=== PATIENT | male | born 1950 | race Caucasian/White ===

== ENCOUNTER 2018-05-31 16:26 | Inpatient (IN) | payer MEDICARE ==
[~2018-05-31] VITALS: Ht 172.7 cm; Wt 64.0 kg
[2018-05-31] MEDS ORDERED: FOLI0.4T PO (16:36)
[2018-05-31] MEDS ORDERED: ONE1TAB2 PO (16:36)
[2018-05-31] MEDS ORDERED: ALBU83IN NEB (16:36)
[2018-05-31] MEDS ORDERED: VITA500C24 PO (16:36)
[2018-05-31] MEDS ORDERED: TREL1AER PO (16:36)
[2018-05-31] MEDS ORDERED: ASPI81TA85 PO (16:36)
[2018-05-31] MEDS ORDERED: ACET-683 PO (16:36)
[2018-05-31] MEDS ORDERED: POTA20EL PO (16:36)
[2018-05-31] MEDS ORDERED: METO1TAB87 PO (16:36)
[2018-05-31] MEDS ORDERED: ATOR40TA75 PO (16:36)
[2018-05-31] MEDS ORDERED: VITA100T12 PO (16:36)
[2018-05-31] MEDS ORDERED: ACETAMINOPHEN TAB 650MG DOSE (2X325MG) PO ONE (17:30)
[2018-05-31 17:39] LABS: BASO # 0.1 10^3/uL (0.0-0.2); BASO % 0.7 % (0.0-1.0); EOS # 0.2 10^3/uL (0.0-0.50); EOS % 1.2 % (0.0-3.0); HEMATOCRIT 40.6 % (42.0-52.0); HEMOGLOBIN 13.1 g/dl (13.5-17.5); LYMPH # 0.4 10^3/uL (1.5-4.5); LYMPH % 3.1 % (24.0-44.0); MEAN CORPUSCULAR HEMOGLOBIN 28.9 pg (27.0-33.0); MEAN CORPUSCULAR HGB CONC 32.3 g/dl (32.0-36.5); MEAN CORPUSCULAR VOLUME 89.6 fl (80.0-96.0); MONO # 1.4 10^3/uL (0.0-0.8); MONO % 10.5 % (0.0-5.0); NEUTROPHILS # 11.5 10^3/uL (1.8-7.7); NEUTROPHILS % 83.8 % (36.0-66.0); PLATELET COUNT, AUTOMATED 365 10^3/uL (150-450); RED BLOOD COUNT 4.53 10^6/uL (4.30-6.10); WHITE BLOOD COUNT 13.7 10^3/uL (4.0-10.0)
[2018-05-31 17:58] LABS: INR 0.97
[2018-05-31 18:00] LABS: INFLUENZA A AMPLIFICATION NEGATIVE (NEGATIVE); INFLUENZA B AMPLIFICATION NEGATIVE (NEGATIVE)
[2018-05-31 18:03] LABS: ALBUMIN 3.5 GM/DL (3.2-5.2); ALT/SGPT 23 U/L (12-78); BILIRUBIN,DIRECT 0.2 MG/DL (0.0-0.2); BILIRUBIN,TOTAL 0.5 MG/DL (0.2-1.0); BLOOD UREA NITROGEN 14 MG/DL (7-18); CALCIUM LEVEL 8.5 MG/DL (8.8-10.2); CARBON DIOXIDE LEVEL 27 MEQ/L (21-32); CHLORIDE LEVEL 106 MEQ/L (98-107); CPK CREATINE PHOSPHOKINASE 79 U/L (39-308); CREATININE FOR GFR 0.78 MG/DL (0.70-1.30); GLOMERULAR FILTRATION RATE > 60.0 (>49); GLUCOSE, FASTING 117 MG/DL (70-100); NT-PRO BNP 1148 PG/ML (<125); POTASSIUM SERUM 4.1 MEQ/L (3.5-5.1); SODIUM LEVEL 141 MEQ/L (136-145); THYROID STIMULATING HORMONE 0.287 uIU/ML (0.358-3.740); TOTAL PROTEIN 6.3 GM/DL (6.4-8.2); TROPONIN I < 0.02 NG/ML (< 0.10)
[2018-05-31] MEDS ORDERED: cefTRIAXone SOD 2 GM in D5W MINI-BAG PLUS 50 ML IV ONE (18:15)
[2018-05-31] MEDS ORDERED: IBUPROFEN 600 MG TAB PO ONE (18:15)
[2018-05-31] MEDS ORDERED: DOXYCYCLINE HYCLATE 100 MG in D5W MINI-BAG PLUS 100 ML IV ONE (18:15)
[2018-05-31] MEDS ORDERED: B-1250TA3 PO (18:36)
[2018-05-31] MEDS ORDERED: ASCO500T PO (18:36)
[2018-05-31] MEDS ORDERED: IPRATROPIUM 0.5MG/ALBUTEROL 2.5MG INH SOL UD 3ML (DUONEB)(J7620) NEB PRN (19:15)
[2018-05-31] MEDS ORDERED: ACETAMINOPHEN 500 MG TAB PO PRN (19:15)
[2018-05-31] MEDS: methylPREDNISolone INJ 40 MG/1 ML VIAL (J2920) IV SCH (19:29)
[2018-05-31] MEDS: IPRATROPIUM 0.5MG/ALBUTEROL 2.5MG INH SOL UD 3ML (DUONEB)(J7620) NEB SCH (20:00)
[2018-05-31 20:35] VITALS: BP 153/66
[2018-05-31] MEDS: METOPROLOL TART 12.5 MG PER 1/2 TAB PO SCH (22:47)
[2018-05-31] MEDS: ENOXAPARIN 40 MG/0.4 ML SYRINGE (J1650) SC SCH (22:48)
[2018-05-31] MEDS: ATORVASTATIN 20 MG TAB PO SCH (22:48)
[2018-06-01] VITALS (7 sets, daily range): BP systolic 107–131; BP diastolic 52–78
[2018-06-01] MEDS: IPRATROPIUM 0.5MG/ALBUTEROL 2.5MG INH SOL UD 3ML (DUONEB)(J7620) NEB SCH ×4 (02:00→19:45)
[2018-06-01 05:09] LABS: HEMATOCRIT 40.2 % (42.0-52.0); HEMOGLOBIN 12.8 g/dl (13.5-17.5); MEAN CORPUSCULAR HEMOGLOBIN 29.1 pg (27.0-33.0); MEAN CORPUSCULAR HGB CONC 31.8 g/dl (32.0-36.5); MEAN CORPUSCULAR VOLUME 91.4 fl (80.0-96.0); PLATELET COUNT, AUTOMATED 340 10^3/uL (150-450); WHITE BLOOD COUNT 13.5 10^3/uL (4.0-10.0)
[2018-06-01 05:24] LABS: BLOOD UREA NITROGEN 17 MG/DL (7-18); CALCIUM LEVEL 8.7 MG/DL (8.8-10.2); CARBON DIOXIDE LEVEL 28 MEQ/L (21-32); CHLORIDE LEVEL 108 MEQ/L (98-107); GLOMERULAR FILTRATION RATE > 60.0 (>49); GLUCOSE, FASTING 182 MG/DL (70-100); POTASSIUM SERUM 4.3 MEQ/L (3.5-5.1); SODIUM LEVEL 140 MEQ/L (136-145)
--- NOTE | 2018-06-01 07:23 | ECGEPIP ---
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
--- NOTE | 2018-06-01 07:32 | REP ---
Chest x-ray: Two views. History: Dyspnea and cough. No comparison chest x-ray. Findings: EKG monitoring electrodes and oxygen delivery tubing overlie the chest. Heart is not enlarged. The lungs are hyperinflated overall. There are increased markings in the right lower lobe consistent with pneumonia. Emphysematous changes are felt to be present in the upper lung zones. Pulmonary vasculature is not increased. No pleural effusion is seen. No bony abnormality is seen. Impression: Hyperinflation consistent with COPD. Infiltrate in the right base consistent with pneumonia. Electronically Signed by Kaiden Link MD 06/01/2018 07:55 A
--- NOTE | 2018-06-01 07:45 | HPE ---
DATE OF ADMISSION: 05/31/2018 ATTENDING PHYSICIAN: Hospitalist Group CHIEF COMPLAINT: Chronic obstructive pulmonary disease (COPD) exacerbation secondary to suspected pneumonia. HISTORY: Keith Estrada is a 67-year-old with severe COPD. He is on chronic supplemental oxygen. He presented with a fever of 101, shortness of breath, cough, productive sputum. He has history of COPD. He had a prolonged hospitalization at [facility] in October and was in the hospital for a month. He was intubated and on extended ventilatory support. The hospitalization was complicated by non ST segment elevation myocardial infarction. His other past history shows hypertension and dysphagia. He had a percutaneous endoscopic gastrostomy (PEG) tube from October until about two weeks ago when it was removed. MEDICATIONS: Tylenol as needed. Aspirin 81 mg daily. Atorvastatin 40 mg daily. Flonase spray. Folic acid 400 mcg daily. Melatonin 5 mg at bedtime. Lopressor 25 mg tablet 1/2 tablet twice daily (12.5 mg twice a day). Multivitamin. Nicotine patch. Potassium chloride 40 mEq daily. Trelegy Ellipta 100-62-25 one inhalation daily. B12 100 mcg daily. Vitamin C daily. ALLERGIES: None known. REVIEW OF SYSTEMS: He has no hemoptysis. No exertional chest pain. No syncope. No rectal bleeding or urinary bleeding. No epistaxis. FAMILY HISTORY: Noncontributory. PHYSICAL EXAMINATION: Blood pressure 181/77. Pulse 138. Respiratory rate 28. 96% oxygen saturation on 2 liters and 94% on 3 liters. 101 degrees. General Appearance: Resting comfortably. Looks like he is chronically dyspneic. He is able to speak full sentences and visit with his family. Says he feels better than he did when he arrived. Pupils equal round and react to light. TMs and oropharynx benign. Neck no masses. Lungs have decreased breath sounds. No wheezes. Emphysematous chest. Heart: Regular rate and rhythm. Tachycardic. Sinus tach on telemetry. Abdomen soft. Nontender. No masses. Extremities: No clubbing, cyanosis or edema. Pulses decreased in the feet, but still palpable. Moves arms and legs with equal strength. LABS: White count 13.7, hemoglobin 13.1 and platelets 365. PT and PTT normal. Sodium 141, potassium 4.1, BUN 14, creatinine 0.7, glucose 117. Flu screen negative. Chest x-ray has not been read yet. There may be some streaky infiltrate on the right side. IMPRESSION: 1. Exacerbation of chronic obstructive pulmonary disease secondary to febrile respiratory infection and suspected pneumonia. Plan - The patient will be admitted to a progressive care unit (PCU) bed. Titrate oxygen to maintain oxygen saturation of 90% or greater. Empiric antibiotic therapy with doxycycline 100 mg IV every 12 hours and Rocephin 2 grams IV daily. Empiric steroid coverage with Solu-Medrol 40 mg IV daily for five days. Nebulized bronchodilator has been ordered. 2. Recent non ST segment elevation myocardial infarction. Telemetry has been ordered. Continue atorvastatin 40 mg daily, low dose Lopressor 12.5 mg twice a day and aspirin 81 mg daily. 3. History of dysphagia. Swallowing is apparently back to baseline. PEG tube has been removed. Aspiration precautions have been ordered. 4. Hypertension. Continue his metoprolol. The hospitalist group will be providing his care in the morning. The patient will be signed out to Dr. Blanche Romo who will do night coverage.
[2018-06-01] MEDS: DOXYCYCLINE HYCLATE 100 MG in D5W MINI-BAG PLUS 100 ML IV SCH ×2 (08:12→20:51)
[2018-06-01] MEDS: METOPROLOL TART 12.5 MG PER 1/2 TAB PO SCH ×2 (08:13→20:51)
[2018-06-01] MEDS: POTASSIUM CHLORIDE 10 MEQ SR TABLET PO SCH (08:13)
[2018-06-01] MEDS: methylPREDNISolone INJ 40 MG/1 ML VIAL (J2920) IV SCH (08:14)
[2018-06-01] MEDS: ASPIRIN 81 MG ENTERIC TAB PO SCH (08:14)
[2018-06-01] MEDS: ASCORBIC ACID 500 MG TAB PO SCH (08:14)
--- NOTE | 2018-06-01 09:45 | IPNPDOC ---
Date Seen The patient was seen on 06/01/18. Progress Note SUBJECTIVE: Patient reports he is breathing better this AM, he tells me normally wears oxygen only at night and with activity, normally not at rest and he is still somewhat short of breath while wearing it at rest at this time. Denies any further fevers since his arrival, no CP, n/v/d OBJECTIVE PHYSICAL EXAMINATION: VITAL SIGNS: Please see below. GENERAL: Pleasant elderly man sitting up in bed wearing nasal cannula she does not appear to be in any acute distress speaking in complete sentences s2 muscle use HEENT: Cranial nerves II through XII grossly intact he is wearing glasses CARDIOVASCULAR: S1-S2 no additional heart sounds appreciated. RESPIRATORY: Lungs expiratory phase and expiratory wheeze bilaterally. ABDOMINAL: Obese bowel sounds present abdomen soft EXTREMITIES: No clubbing cyanosis or edema LABORATORY DATA, IMAGING STUDIES, MICROBIOLOGY: Please see below. DVT prophylaxis ordered?: Lovenox ASSESSMENT AND PLAN: This is a 67-year-old man with shortness of breath. PROBLEMS: 1. Shortness of breath: Likely decompensated COPD secondary to community acquired pneumonia. He does have increased cough and shortness of of breath and increased sputum quantity several days prior to his hospitalization he denies any sick contacts. For the time being he is started on doxycycline and ceftriaxone for follow-up with cultures and narrow spectrum as appropriate I will check respiratory PCR panel as well. He is continued on IV Solu-Medrol nebulizer treatments he doesn't appear to be improving with this regimen as such we will continue with. We'll have to titrate his O2 for his baseline of room air at rest percent 80-92 2. Coronary artery disease: He tells me he had a recent end STEMI is continued on aspirin and statin and beta parish he is not exhibiting any anginal-like symptoms or pain at this time. 3. Depressed TSH: We'll check a complete thyroid panel and reevaluate 4. Left shoulder pain: He recently had shingles and has residual pain which is chronic since that should his symptoms not improve. Consider initiation of Neurontin DISPOSITION: Pending clinical improvement. VS, I&O, 24H, Fishbone Vital Signs/I&O Vital Signs Date Time Temp Pulse Resp B/P (MAP) Pulse Ox O2 Delivery O2 Flow Rate FiO2 06/01/18 08:13 86 118/56 06/01/18 08:00 98.5 20 94 2.0 05/31/18 20:16 Nasal Cannula I&O- Last 24 Hours up to 6 AM 06/01/18 06:00 Intake Total 350 ml Balance 350 ml Laboratory Data 24H LABS Laboratory Tests 2 05/31/18 17:19: Immature Granulocyte % (Auto) 0.7, White Blood Count 13.7H, Red Blood Count 4.53, Hemoglobin 13.1L, Hematocrit 40.6L, Mean Corpuscular Volume 89.6, Mean Corpuscular Hemoglobin 28.9, Mean Corpuscular Hemoglobin Concent 32.3, Red Cell Distribution Width 15.0H, Platelet Count 365, Neutrophils (%) (Auto) 83.8H, Lymphocytes (%) (Auto) 3.1L, Monocytes (%) (Auto) 10.5H, Eosinophils (%) (Auto) 1.2, Basophils (%) (Auto) 0.7, Neutrophils # (Auto) 11.5H, Lymphocytes # (Auto) 0.4L, Monocytes # (Auto) 1.4H, Eosinophils # (Auto) 0.2, Basophils # (Auto) 0.1, Nucleated Red Blood Cells % (auto) 0.0, Prothrombin Time 13.0, Prothromb Time International Ratio 0.97, Anion Gap 8, Glomerular Filtration Rate > 60.0, Calcium Level 8.5L, Aspartate Amino Transf (AST/SGOT) 16, Alanine Aminotransferase (ALT/SGPT) 23, Alkaline Phosphatase 108, Total Bilirubin 0.5, Direct Bilirubin 0.2, Total Creatine Kinase 79, Creatine Kinase MB 2.0, Creatine Kinase MB Relative Index 1.90, Troponin I < 0.02, QO-Bov-Q-Type Natriuretic Peptide 1148H, Total Protein 6.3L, Albumin 3.5, Albumin/Globulin Ratio 1.25, Thyroid Stimulating Hormone (TSH) 0.287L, Influenza Type A (RT-PCR) NEGATIVE, Influenza Type B (RT-PCR) NEGATIVE 06/01/18 04:47: Nucleated Red Blood Cells % (auto) 0.0, Anion Gap 4L, Glomerular Filtration Rate > 60.0, Calcium Level 8.7L, Blood Urea Nitrogen 17, Creatinine 0.80, Sodium Level 140, Potassium Level 4.3, Chloride Level 108H, Carbon Dioxide Level 28 CBC/BMP Laboratory Tests 05/31/18 17:19 Red Blood Count 4.53, Mean Corpuscular Volume 89.6, Mean Corpuscular Hemoglobin 28.9, Mean Corpuscular Hemoglobin Concent 32.3, Red Cell Distribution Width 15.0 H, Neutrophils (%) (Auto) 83.8 H, Lymphocytes (%) (Auto) 3.1 L, Monocytes (%) (Auto) 10.5 H, Eosinophils (%) (Auto) 1.2, Basophils (%) (Auto) 0.7, Neutrophils # (Auto) 11.5 H, Lymphocytes # (Auto) 0.4 L, Monocytes # (Auto) 1.4 H, Eosinophils # (Auto) 0.2, Basophils # (Auto) 0.1 06/01/18 04:47 Red Blood Count 4.40, Mean Corpuscular Volume 91.4, Mean Corpuscular Hemoglobin 29.1, Mean Corpuscular Hemoglobin Concent 31.8 L, Red Cell Distribution Width 15.2 H, Calcium Level 8.7 L Microbiology Microbiology 05/31/18 Blood Culture, Received Pending 05/31/18 Blood Culture, Received Pending KAR REDDY MD Jun 01, 2018 09:45
[2018-06-01] MEDS: GABAPENTIN 100 MG CAP PO SCH ×3 (10:56→20:51)
[2018-06-01] MEDS: cefTRIAXone SOD 2 GM in D5W MINI-BAG PLUS 50 ML IV SCH (17:58)
[2018-06-01] MEDS: ENOXAPARIN 40 MG/0.4 ML SYRINGE (J1650) SC SCH (20:50)
[2018-06-01] MEDS: ATORVASTATIN 20 MG TAB PO SCH (20:51)
[2018-06-02] MEDS: IPRATROPIUM 0.5MG/ALBUTEROL 2.5MG INH SOL UD 3ML (DUONEB)(J7620) NEB SCH ×4 (02:00→20:07)
[2018-06-02 06:00] VITALS: BP 106/63
[2018-06-02 06:34] LABS: HEMATOCRIT 35.8 % (42.0-52.0); HEMOGLOBIN 11.4 g/dl (13.5-17.5); MEAN CORPUSCULAR HEMOGLOBIN 28.9 pg (27.0-33.0); MEAN CORPUSCULAR HGB CONC 31.8 g/dl (32.0-36.5); MEAN CORPUSCULAR VOLUME 90.9 fl (80.0-96.0); PLATELET COUNT, AUTOMATED 348 10^3/uL (150-450); RED BLOOD COUNT 3.94 10^6/uL (4.30-6.10); WHITE BLOOD COUNT 11.5 10^3/uL (4.0-10.0)
[2018-06-02 07:02] LABS: BLOOD UREA NITROGEN 14 MG/DL (7-18); CALCIUM LEVEL 8.7 MG/DL (8.8-10.2); CARBON DIOXIDE LEVEL 29 MEQ/L (21-32); CHLORIDE LEVEL 108 MEQ/L (98-107); CREATININE FOR GFR 0.72 MG/DL (0.70-1.30); FREE THYROXINE INDEX 2.3 % (1.4-3.8); GLOMERULAR FILTRATION RATE > 60.0 (>49); GLUCOSE, FASTING 117 MG/DL (70-100); POTASSIUM SERUM 4.2 MEQ/L (3.5-5.1); SODIUM LEVEL 142 MEQ/L (136-145); T UPTAKE 33 % (33-40); THYROID STIMULATING HORMONE 0.413 uIU/ML (0.358-3.740)
[2018-06-02] MEDS: DOXYCYCLINE HYCLATE 100 MG in D5W MINI-BAG PLUS 100 ML IV SCH ×2 (09:32→20:44)
[2018-06-02] MEDS: methylPREDNISolone INJ 40 MG/1 ML VIAL (J2920) IV SCH (09:32)
[2018-06-02] MEDS: ASPIRIN 81 MG ENTERIC TAB PO SCH (09:32)
[2018-06-02] MEDS: GABAPENTIN 100 MG CAP PO SCH ×3 (09:35→20:44)
[2018-06-02] MEDS: ASCORBIC ACID 500 MG TAB PO SCH (09:35)
[2018-06-02] MEDS: LACTOBACILLUS ACIDOPHILUS CAP (BACID) PO SCH ×3 (09:35→20:44)
[2018-06-02] MEDS: POTASSIUM CHLORIDE 10 MEQ SR TABLET PO SCH (09:35)
[2018-06-02] MEDS: METOPROLOL TART 12.5 MG PER 1/2 TAB PO SCH ×2 (09:46→20:44)
[2018-06-02 14:00] VITALS: BP 121/58
--- NOTE | 2018-06-02 16:13 | IPNPDOC ---
Date Seen The patient was seen on 06/02/18. Progress Note SUBJECTIVE: 67 yo Male presented with SOB admitted for COPD exacerbation likely 2/2 CAP. Interval history: Patient reports feeling better but still SOB when he is moving around. Doesn't think he is able to do PT yet today as he is still very winded with any type of movements. OBJECTIVE PHYSICAL EXAMINATION: General: No acute distress, Alert Eyes: Normal sclera, EOMI, JUAN HENT: Atraumatic, neck supple, moist mucous membranes Cardiovascular: Normal rate, normal rhythm. No murmurs appreciated. 2+ pitting edema b/l. Pulmonary: b/l expiratory wheezing. GI: Soft, nontender, nondistended Skin: Warm and dry Neuro: CN grossly intact. No focal deficits. Strengths equal b/l. Psych: oriented x 3 LABORATORY DATA, IMAGING STUDIES, MICROBIOLOGY: Please see below. DVT prophylaxis ordered?: YES ASSESSMENT AND PLAN: 1. COPD - c/w Abx, steroids and nebs treatment. - O2 support as needed. - Still with significant SOB with exertion. Will start taper steroids tomorrow if he improves. 2. RLL CAP - c/w Rocephin and Doxycycline. - O2 support. 3. CAD - c/w home medications. ASA, statin, BB. - No chest pain 4. Depressed TSH - normal free T4/T4. - Likely subclinical hyperthyroidism. - Monitor at this time. DISPOSITION: Unknown. VS, I&O, 24H, [facility] Vital Signs/I&O Vital Signs Date Time Temp Pulse Resp B/P (MAP) Pulse Ox O2 Delivery O2 Flow Rate FiO2 06/02/18 14:00 98.3 85 19 121/58 (79) 92 2.0 06/01/18 19:45 Nasal Cannula I&O- Last 24 Hours up to 6 AM 06/02/18 06:00 Intake Total 1210 ml Output Total 0 ml Balance 1210 ml Laboratory Data 24H LABS Laboratory Tests 2 06/02/18 05:33: Nucleated Red Blood Cells % (auto) 0.0, Anion Gap 5L, Glomerular Filtration Rate > 60.0, Blood Urea Nitrogen 14, Creatinine 0.72, Sodium Level 142, Potassium Level 4.2, Chloride Level 108H, Carbon Dioxide Level 29, Calcium Level 8.7L, Thyroid Stimulating Hormone (TSH) 0.413, Free Thyroxine Index 2.3, Thyroxine (T4) 7.0, Triiodothyronine (T3) Uptake 33 CBC/BMP Laboratory Tests 06/02/18 05:33 Red Blood Count 3.94 L, Mean Corpuscular Volume 90.9, Mean Corpuscular Hemoglobin 28.9, Mean Corpuscular Hemoglobin Concent 31.8 L, Red Cell Distribution Width 15.4 H, Calcium Level 8.7 L Microbiology Microbiology 05/31/18 Blood Culture - Preliminary, Resulted No growth after 24 hours . All specim... 05/31/18 Blood Culture - Preliminary, Resulted No growth after 24 hours . All specim... 06/01/18 Respiratory Virus Panel (PCR) ([facility]) - Final, Complete JOHN RAMÍREZ MD Jun 02, 2018 16:13
[2018-06-02] MEDS: cefTRIAXone SOD 2 GM in D5W MINI-BAG PLUS 50 ML IV SCH (17:04)
[2018-06-02] MEDS: ATORVASTATIN 20 MG TAB PO SCH (20:44)
[2018-06-02] MEDS: ENOXAPARIN 40 MG/0.4 ML SYRINGE (J1650) SC SCH (20:44)
[2018-06-02 22:00] VITALS: BP 138/63
[2018-06-03] MEDS: IPRATROPIUM 0.5MG/ALBUTEROL 2.5MG INH SOL UD 3ML (DUONEB)(J7620) NEB SCH ×4 (02:00→20:01)
[2018-06-03 06:00] VITALS: BP 122/65
[2018-06-03 06:09] LABS: HEMATOCRIT 36.5 % (42.0-52.0); HEMOGLOBIN 11.4 g/dl (13.5-17.5); MEAN CORPUSCULAR HEMOGLOBIN 28.9 pg (27.0-33.0); MEAN CORPUSCULAR HGB CONC 31.2 g/dl (32.0-36.5); MEAN CORPUSCULAR VOLUME 92.6 fl (80.0-96.0); PLATELET COUNT, AUTOMATED 367 10^3/uL (150-450); RED BLOOD COUNT 3.94 10^6/uL (4.30-6.10); WHITE BLOOD COUNT 9.8 10^3/uL (4.0-10.0)
[2018-06-03 06:30] LABS: BLOOD UREA NITROGEN 17 MG/DL (7-18); CALCIUM LEVEL 8.6 MG/DL (8.8-10.2); CARBON DIOXIDE LEVEL 30 MEQ/L (21-32); CHLORIDE LEVEL 108 MEQ/L (98-107); CREATININE FOR GFR 0.68 MG/DL (0.70-1.30); GLOMERULAR FILTRATION RATE > 60.0 (>49); GLUCOSE, FASTING 101 MG/DL (70-100); POTASSIUM SERUM 4.2 MEQ/L (3.5-5.1); SODIUM LEVEL 141 MEQ/L (136-145)
[2018-06-03 08:00] VITALS: BP 116/55
[2018-06-03] MEDS: methylPREDNISolone INJ 40 MG/1 ML VIAL (J2920) IV SCH (08:37)
[2018-06-03] MEDS: DOXYCYCLINE HYCLATE 100 MG in D5W MINI-BAG PLUS 100 ML IV SCH ×2 (08:38→20:13)
[2018-06-03] MEDS: LACTOBACILLUS ACIDOPHILUS CAP (BACID) PO SCH ×3 (08:38→20:13)
[2018-06-03] MEDS: POTASSIUM CHLORIDE 10 MEQ SR TABLET PO SCH (08:39)
[2018-06-03] MEDS: ASPIRIN 81 MG ENTERIC TAB PO SCH (08:40)
[2018-06-03] MEDS: GABAPENTIN 100 MG CAP PO SCH ×3 (08:40→20:13)
[2018-06-03] MEDS: ASCORBIC ACID 500 MG TAB PO SCH (08:40)
[2018-06-03] MEDS: METOPROLOL TART 12.5 MG PER 1/2 TAB PO SCH ×2 (08:40→20:13)
[2018-06-03 14:00] VITALS: BP_SYST 130; BP_SYST 99; BP_DIAS 61; BP_DIAS 64
--- NOTE | 2018-06-03 15:03 | IPNPDOC ---
Date Seen The patient was seen on 06/03/18. Progress Note SUBJECTIVE: 67 yo Male presented with SOB admitted for COPD exacerbation likely 2/2 CAP. Interval history: Patient reports feeling better. Has been able to walk around his room without much difficulty. Still has productive cough. OBJECTIVE PHYSICAL EXAMINATION: General: No acute distress, Alert Eyes: Normal sclera, EOMI, JUAN HENT: Atraumatic, neck supple, moist mucous membranes Cardiovascular: Normal rate, normal rhythm. No murmurs appreciated. 2+ pitting edema b/l. Pulmonary: b/l expiratory wheezing. GI: Soft, nontender, nondistended Skin: Warm and dry Neuro: CN grossly intact. No focal deficits. Strengths equal b/l. Psych: oriented x 3 LABORATORY DATA, IMAGING STUDIES, MICROBIOLOGY: Please see below. DVT prophylaxis ordered?: YES ASSESSMENT AND PLAN: 1. COPD - c/w Abx, steroids and nebs treatment. - O2 support as needed. - Will taper steroids in anticipation for discharge in the next day or two if continue to improve. 2. RLL CAP - c/w Rocephin and Doxycycline. - O2 support. 3. CAD - c/w home medications. ASA, statin, BB. - No chest pain 4. Depressed TSH - normal free T4/T4. - Likely subclinical hyperthyroidism. - Monitor at this time. DISPOSITION: Likely can be discharged home in the next 24-48 hours. [facility] V[facility] Signs/I&O Vital Signs Date Time Temp Pulse Resp B/P (MAP) Pulse Ox O2 Delivery O2 Flow Rate FiO2 06/03/18 14:00 98.8 97 18 99/64 (73) 93 2.0 06/01/18 19:45 Nasal Cannula I&O- Last 24 Hours up to 6 AM 06/03/18 06:00 Intake Total 1240 ml Output Total 550 ml Balance 690 ml Laboratory Data 24H LABS Laboratory Tests 2 06/03/18 05:33: Nucleated Red Blood Cells % (auto) 0.0, Anion Gap 3L, Glomerular Filtration Rate > 60.0, Blood Urea Nitrogen 17, Creatinine 0.68L, Sodium Level 141, Potassium Level 4.2, Chloride Level 108H, Carbon Dioxide Level 30, Calcium Level 8.6L CBC/BMP Laboratory Tests 06/03/18 05:33 Red Blood Count 3.94 L, Mean Corpuscular Volume 92.6, Mean Corpuscular Hemoglobin 28.9, Mean Corpuscular Hemoglobin Concent 31.2 L, Red Cell Distribution Width 15.5 H, Calcium Level 8.6 L Microbiology Microbiology 05/31/18 Blood Culture - Preliminary, Resulted No Growth after 48 hours. All Specime... 05/31/18 Blood Culture - Preliminary, Resulted No Growth after 48 hours. All Specime... 06/01/18 Respiratory Virus Panel (PCR) ([facility]) - Final, Complete JOHN RAMÍREZ MD Jun 03, 2018 15:03
[2018-06-03] MEDS: cefTRIAXone SOD 2 GM in D5W MINI-BAG PLUS 50 ML IV SCH (18:17)
[2018-06-03] MEDS: ATORVASTATIN 20 MG TAB PO SCH (20:13)
[2018-06-03] MEDS: ENOXAPARIN 40 MG/0.4 ML SYRINGE (J1650) SC SCH (20:14)
[2018-06-03 22:00] VITALS: BP 138/94
[2018-06-04] MEDS: IPRATROPIUM 0.5MG/ALBUTEROL 2.5MG INH SOL UD 3ML (DUONEB)(J7620) NEB SCH ×3 (02:00→13:16)
[2018-06-04 06:00] VITALS: BP 130/63
[2018-06-04 06:34] LABS: HEMATOCRIT 36.5 % (42.0-52.0); HEMOGLOBIN 11.8 g/dl (13.5-17.5); MEAN CORPUSCULAR HEMOGLOBIN 29.8 pg (27.0-33.0); MEAN CORPUSCULAR HGB CONC 32.3 g/dl (32.0-36.5); MEAN CORPUSCULAR VOLUME 92.2 fl (80.0-96.0); PLATELET COUNT, AUTOMATED 396 10^3/uL (150-450); RED BLOOD COUNT 3.96 10^6/uL (4.30-6.10); WHITE BLOOD COUNT 8.2 10^3/uL (4.0-10.0)
[2018-06-04 06:56] LABS: BLOOD UREA NITROGEN 17 MG/DL (7-18); CALCIUM LEVEL 8.7 MG/DL (8.8-10.2); CARBON DIOXIDE LEVEL 30 MEQ/L (21-32); CHLORIDE LEVEL 106 MEQ/L (98-107); CREATININE FOR GFR 0.72 MG/DL (0.70-1.30); GLOMERULAR FILTRATION RATE > 60.0 (>49); GLUCOSE, FASTING 91 MG/DL (70-100); SODIUM LEVEL 141 MEQ/L (136-145)
[2018-06-04] MEDS: LACTOBACILLUS ACIDOPHILUS CAP (BACID) PO SCH (08:27)
[2018-06-04 08:28] VITALS: BP 116/80
[2018-06-04] MEDS: METOPROLOL TART 12.5 MG PER 1/2 TAB PO SCH (08:28)
[2018-06-04] MEDS: POTASSIUM CHLORIDE 10 MEQ SR TABLET PO SCH (08:29)
[2018-06-04] MEDS: ASPIRIN 81 MG ENTERIC TAB PO SCH (08:29)
[2018-06-04] MEDS: GABAPENTIN 100 MG CAP PO SCH (08:29)
[2018-06-04] MEDS: ASCORBIC ACID 500 MG TAB PO SCH (08:29)
[2018-06-04] MEDS: DOXYCYCLINE HYCLATE 100 MG in D5W MINI-BAG PLUS 100 ML IV SCH (08:29)
[2018-06-04] MEDS ORDERED: predniSONE 20 MG TAB PO SCH (09:00)
[2018-06-04] MEDS ORDERED: PRED20TA PO (13:18)
[2018-06-04] MEDS ORDERED: DOXY-350 PO (13:18)
--- NOTE | 2018-06-04 13:25 | DS.PDOC ---
Discharge Summary General Date of Admission May 31, 2018 at 19:08 Date of Discharge 06/04/18 Attending Physician: JOHN RAMÍREZ MD Discharge Summary PROCEDURES PERFORMED DURING STAY: [None]. ADMITTING DIAGNOSES: 1. COPD exacerbation. 2. RLL CAP 3. CAD 4. Depressed TSH. DISCHARGE DIAGNOSES: 1. COPD exacerbation. 2. RLL CAP 3. CAD 4. Depressed TSH. COMPLICATIONS/CHIEF COMPLAINT: Cap, Copd Exacerbation. HISTORY OF PRESENT ILLNESS: "Keith Estrada is a 67-year-old with severe COPD. He is on chronic supplemental oxygen. He presented with a fever of 101, shortness of breath, cough, productive sputum. He has history of COPD. He had a prolonged hospitalization at [facility] in October and was in the hospital for a month. He was intubated and on extended ventilatory support. The hospitalization was complicated by non ST segment elevation myocardial infarction. His other past history shows hypertension and dysphagia. He had a percutaneous endoscopic gastrostomy (PEG) tube from October until about two weeks ago when it was removed." HOSPITAL COURSE: Patient's a 67-year-old male with past medical history of severe COPD on 2 L home oxygen presents to ER with complaints of shortness of breath, increased sputum production with cough and fever to 101. Patient was started on steroids and antibiotics with improvements over the past several days now back to his baseline 2 L oxygen nasal cannula. Patient feels that he is back at his baseline with his respiratory status being that he is always short of breath due to his underlying lung disease. He was able to walk around for any significant difficulty and wants to go home. We'll discharge patient home complete course of antibiotics and prednisone as well as follow-up with PCP and supplier quality manager. DISCHARGE MEDICATIONS: Please see below. ALLERGIES: Please see below. PHYSICAL EXAMINATION ON DISCHARGE: VITAL SIGNS: Please see below. General: No acute distress, Alert Eyes: Normal sclera, EOMI, JUAN HENT: Atraumatic, neck supple, moist mucous membranes Cardiovascular: Normal rate, normal rhythm. No murmurs appreciated. 2+ pitting edema b/l. Pulmonary: mild b/l expiratory wheezing. GI: Soft, nontender, nondistended Skin: Warm and dry Neuro: CN grossly intact. No focal deficits. Strengths equal b/l. Psych: oriented x 3 LABORATORY DATA: Please see below. IMAGING: CXR- Impression: Hyperinflation consistent with COPD. Infiltrate in the right base consistent with pneumonia. ACTIVITY: [As tolerated]. DIET: CARDIAC DIET DISCHARGE PLAN: complete course of Abx and prednisone. f/u PCP and Hat And Cap Opener. DISPOSITION: Home. ITEMS TO FOLLOWUP ON ON OUTPATIENT: 1. None DISCHARGE CONDITION: [Stable]. TIME SPENT ON DISCHARGE: Greater than 32 minutes. Vital Signs/I&Os Vital Signs Date Time Temp Pulse Resp B/P (MAP) Pulse Ox O2 Delivery O2 Flow Rate FiO2 06/04/18 09:00 2.0 06/04/18 08:28 104 116/80 06/04/18 06:00 98.3 19 95 06/01/18 19:45 Nasal Cannula I&O- Last 24 Hours up to 6 AM 06/04/18 06:00 Intake Total 850 ml Output Total 0 ml Balance 850 ml Laboratory Data Labs 24H Laboratory Tests 2 06/04/18 06:12: Nucleated Red Blood Cells % (auto) 0.0, Anion Gap 5L, Glomerular Filtration Rate > 60.0, Blood Urea Nitrogen 17, Creatinine 0.72, Sodium Level 141, Potassium Level 4.0, Chloride Level 106, Carbon Dioxide Level 30, Calcium Level 8.7L CBC/BMP Laboratory Tests 06/04/18 06:12 Red Blood Count 3.96 L, Mean Corpuscular Volume 92.2, Mean Corpuscular Hemoglobin 29.8, Mean Corpuscular Hemoglobin Concent 32.3, Red Cell Distribution Width 15.4 H, Calcium Level 8.7 L Microbiology Microbiology 05/31/18 Blood Culture - Preliminary, Resulted No Growth after 72 hours. All specime... 05/31/18 Blood Culture - Preliminary, Resulted No Growth after 72 hours. All specime... 06/01/18 Respiratory Virus Panel (PCR) ([facility]) - Final, Complete Discharge Medications Scheduled Ascorbic Acid (Ascorbic Acid) 500 Mg Tablet, 500 MG PO DAILY, (Reported) Aspirin (Aspir 81) 81 Mg Tablet.dr, 81 MG PO DAILY, (Reported) Atorvastatin Calcium (Atorvastatin Calcium) 40 Mg Tablet, 40 MG PO QHS, (Reported) Cyanocobalamin (Vitamin B-12) (Vitamin B-12) 50 Mcg Tablet, 100 MCG PO DAILY, (Reported) Doxycycline Monohydrate (Doxycycline) 100 Mg Capsule, 100 MG PO BID Fluticasone/Umeclidin/Vilanter (Trelegy Ellipta 100-62.5-25) 1 Each Blst.w.dev, 1 PUFF PO DAILY, (Reported) Folic Acid (Folic Acid) 0.4 Mg Tablet, 800 MCG PO DAILY, (Reported) Metoprolol Tartrate (Metoprolol Tartrate) 25 Mg Tablet, 12.5 MG PO BID, (Reported) Multivit-Minerals/FA/Lycopene (One Daily Men's Health Tablet) 1 Each Tablet, 1 TAB PO DAILY, (Reported) Potassium Chloride (Potassium Chloride) 20 Meq/15 Ml Liquid, 15 ML PO DAILY, (Reported) Prednisone (Prednisone) 20 Mg Tablet, 40 MG PO DAILY Scheduled PRN Acetaminophen (Acetaminophen) 500 Mg Tablet, 1,000 MG PO Q6H PRN for PAIN, (Reported) Albuterol Sulf (Albuterol Sulfate) 2.5 Mg/3 Ml Vial.neb, 1 VIAL NEB Q4HP PRN for wheezing, (Reported) Allergies Coded Allergies: No Known Allergies (Unverified , 05/31/18) JOHN RAMÍREZ MD Jun 04, 2018 13:25
== END 2018-06-04 14:04 | disposition home or self-care (01) | DRG 190 ==
LOC: M ED 16:26 → M ED INP 19:08 → M PCU 20:31 → M MSPAV 06-01 22:28
PROVIDERS: ADMIT Family Medicine; ATTEND Student in an Organized Health Care Education/Training Program
DX: J44.0 Chronic obstructive pulmonary disease with (acute) lower respiratory infection (principal); J18.9 Pneumonia, unspecified organism; I25.2 Old myocardial infarction; J44.1 Chronic obstructive pulmonary disease with (acute) exacerbation; F32.9 Major depressive disorder, single episode, unspecified; I10 Essential (primary) hypertension; Z99.81 Dependence on supplemental oxygen; Z79.82 Long term (current) use of aspirin